=== PATIENT | male | born 1990 | race Caucasian/White ===

== ENCOUNTER 2017-08-25 13:07 | Emergency (ER) | payer SELFPAY ==
[~2017-08-25] VITALS: Ht 175.3 cm; Wt 72.7 kg
[2017-08-25] MEDS ORDERED: CRUTCHES MC (14:16)
[2017-08-25 14:23] VITALS: BP 121/79; PULSE 81; TEMP 97.9
[2017-08-25] MEDS ORDERED: NORCO 325 MG-51 TAB PO (14:33)
== END 2017-08-25 15:04 | disposition home or self-care (01) ==
LOC: COL.ER 13:07
DX: M25.561 Pain in right knee (principal); X50.0XXA Overexertion from strenuous movement or load, initial encounter
CPT/HCPCS: J1170; J1885

== ENCOUNTER 2019-10-07 12:52 | Emergency (ER) | payer SELFPAY ==
[~2019-10-07] VITALS: Ht 175.3 cm; Wt 76.4 kg
[~2019-10-07 12:52] MED LIST: CRUTCHES MC; NORCO 325 MG-51 TAB PO
[2019-10-07 13:21] VITALS: BP 117/78; TEMP 98.7
[2019-10-07 14:25] VITALS: PULSE 78
== END 2019-10-07 15:10 | disposition home or self-care (01) ==
LOC: COL.ER 12:52
DX: S40.021A Contusion of right upper arm, initial encounter (principal); M79.641 Pain in right hand; Y04.0XXA Assault by unarmed brawl or fight, initial encounter; Y92.410 Unspecified street and highway as the place of occurrence of the external cause